=== PATIENT | male | born 1960 | race Caucasian/White ===

== ENCOUNTER 2020-07-25 07:43 | Outpatient (CLI) | payer BC, SELFPAY | END 2020-07-25 07:44 | disposition home or self-care (01) | LOC: ANHNEURO 07:55 | PROVIDERS: Visit Provider Psychiatry & Neurology Neurology | DX: R51.9 Headache, unspecified (principal) | CPT/HCPCS: 95816 ==

== ENCOUNTER 2020-07-25 08:11 | Outpatient (CLI) | payer BC, SELFPAY ==
--- NOTE | ~2020-07-25 | MR_ITS ---
EXAMINATION: MR brain/brain stem wo con EXAM DATE: 07/25/2020 08:41 INDICATION: Headache TECHNIQUE: Magnetic resonance imaging (MRI) of the brain/brain stem obtained without contrast. Judithitt al T1, axial diffusion, gradient echo (T2*), T1, T2, FLAIR sequences obtained. Comparison is made to prior examination from 03/07/2011. FINDINGS: There are no areas of restricted diffusion to suggest acute infarction. There is no acute hemorrhage seen on the T2*, a hemosiderin sensitive sequence. No intraparenchymal brain mass. The ve ntricles are normal in size. There are no extra-axial collections. Flow voids are seen in the cereb ral arteries on the T2-weighted sequences consistent with their expected patency. The orbits are unr emarkable. Soft tissue is unremarkable. Mild mucoperiosteal thickening. IMPRESSION: 1. Unremarkable brain MRI examination. Reviewed, dictated and finalized at location B. GER RESEARCH
--- NOTE | 2020-07-26 11:24 | WPDNEUROLOGY ---
Neurology EEG Report General Information Date of Study: 07/25/20 TEST EEG DIAGNOSIS headaches CONDITION OF RECORDING awake drowsy and sleep EEG NUMBER [id number] CLINICAL HISTORY patient reported he has had severe carbon monoxide poisoning about a month ago and is still having headaches, fatigue, his stuttering and feeling unbalanced. EEG DESCRIPTION basic resting occipital frequency consists of diffuse low-voltage 15 to 18 hertz per 2nd beta activity admixed with multiple muscle artifacts and movement artifacts. Bilateral symmetrical sleep activity seen during sleep but again admixed with multiple artifacts. Hyperventilation not done. Photic stimulation produced normal drive. Non paroxysmal. Nonfocal. Nonlateralizing. IMPRESSION No significant abnormalities noted though the EEG is compromised by muscle artifacts.
== END 2020-07-25 08:12 | disposition home or self-care (01) ==
LOC: ANHIMG 08:13
PROVIDERS: PCP Emergency Medicine; Visit Provider Psychiatry & Neurology Neurology
DX: R51.9 Headache, unspecified (principal)
CPT/HCPCS: 70551

== ENCOUNTER 2021-08-01 07:46 | Outpatient (RCR) | payer BC, SELFPAY ==
[2021-08-01] MEDS: diphenhydrAMINE HCl CAP 25 MG CAPSULE PO (12:18)
[2021-08-01] MEDS: FAMOTIDINE 20 MG TABLET PO (12:18)
[2021-08-01] MEDS: ACETAMINOPHEN 325 MG TABLET 650 MG PO (12:18)
[2021-08-01 12:24] VITALS: BP 99/69; PULSE 80; RESP 20; TEMP 36.2; O2SAT 100
[2021-08-01 13:54] VITALS: BP 103/69
== END 2021-08-01 17:00 ==
LOC: AMCINF 07:46
PROVIDERS: PCP Emergency Medicine; Visit Provider Internal Medicine Hematology & Oncology
DX: U07.1 COVID-19 (principal)
CPT/HCPCS: A9270; M0245; Q0245

== ENCOUNTER 2023-05-14 20:17 | Observation (INO) | payer BC, SELFPAY ==
[2023-05-14] VITALS (7 sets, daily range): BP systolic 121–146; BP diastolic 75–94; PULSE 66–74; RESP 11–20; TEMP 36.6; O2SAT 97–100
--- NOTE | ~2023-05-14 | MR_ITS ---
MRI of the brain Clinical History: Dizziness, left pronator drift Technique: Axial and sagittal T1-weighted images were acquired. These were followed by axial T2-weigh chris, diffusion weighted, gradient, and FLAIR images. Following intravenous administration of 20 cc Mu ltiHance gadolinium, T1-weighted fat-sat imaging was performed in the axial and coronal planes. Findings: There is no abnormal signal in the brain parenchyma. No acute infarct, intracranial hemorrh age, or mass lesion identified. Ventricles and subarachnoid spaces are unremarkable. Orbits are unremarkable. Paranasal sinuses and m astoid air cells are clear. Major intracranial flow voids are intact. Sagittal midline structures are intact. No abnormal postcontrast enhancement identified. Impression: Unremarkable exam. Reviewed, dictated and finalized at location M. Impression: Unremarkable exam.
--- NOTE | ~2023-05-14 | CT_ITS ---
EXAMINATION: CTA brain carotid DATE: 05/14/2023 22:01 INDICATION: Headache and left arm tingling TECHNIQUE: Computed tomographic angiography (CTA) of the head was performed without and with 100 mL O mnipaque-350 intravenous contrast. CTA of the neck was performed with intravenous contrast. The dose- length product was 1854.85 mGy-cm. Maximum intensity projection and volume rendered 3D-reconstruction s were created by the technologist on a separate workstation. Automated exposure control and iterativ e reconstruction technique were employed. COMPARISON: 01/04/2011 FINDINGS: HEAD CTA: There is no intracranial hemorrhage, acute infarction, or abnormal mass lesion. The ventric les are normal. There is no abnormal mass effect or midline shift. The pryor-white matter differentiat ion is normal. The basal cisterns are patent. The orbits are normal. There is mild mucosal thickening of the paranasal sinuses. There is no significant stenosis of the basilar artery or posterior cerebral arteries. There is no si gnificant stenosis of the intracranial internal carotid arteries or the anterior or middle cerebral a rteries. The anterior communicating artery and posterior communicating arteries are normal. There is no aneurysm. The distal left vertebral artery is diminutive. NECK CTA: The thyroid gland is unremarkable. The submandibular and parotid glands are symmetric. Ther e is no lymphadenopathy. There are no masses identified. The airway is unremarkable. Dependent atelec tasis is noted. The superior mediastinum is unremarkable. There is mild cervical spondylosis. There is 0% stenosis of the proximal right internal carotid artery relative to normal distal artery l umen diameter (NASCET criteria). There is 0% stenosis of the proximal left internal carotid artery re lative to normal distal artery lumen diameter. IMPRESSION: 1. No acute intracranial abnormality. Normal head CTA. 2. 0% stenosis of the proximal right internal carotid artery relative to normal distal artery lumen d iameter (NASCET criteria). 3. 0% stenosis of the proximal left internal carotid artery relative to normal distal artery lumen di ameter. Reviewed, dictated and finalized at location F. IMPRESSION: 1. No acute intracranial abnormality. Normal head CTA. 2. 0% stenosis of the proximal right internal carotid artery relative to normal distal artery lumen diameter (NASCET criteria). 3. 0% stenosis of the proximal left internal carotid artery relative to normal distal artery lumen diameter.
--- NOTE | ~2023-05-14 | XR_ITS ---
EXAMINATION: XR chest 2V DATE: 05/14/2023 20:42 INDICATION: Chest pain TECHNIQUE: AP and lateral views of the chest are obtained. COMPARISON: 01/04/2011 FINDINGS: The lung volumes are low. The lungs are free of acute opacities. No pleural effusion or pne umothorax. Changes of right shoulder arthroplasty are noted. The cardiomediastinal silhouette is norm al. There is mild thoracic spondylosis. IMPRESSION: 1. No acute cardiopulmonary abnormality. Reviewed, dictated and finalized at location F.
--- NOTE | 2023-05-14 20:19 | ECG_ITS ---
Measurements Intervals [place] Rate: 68 P: 49 [place]: 135 QRS: 54 QRSD: 94 T: 66 QT: 404 QTc: 430 Interpretive Statements SINUS RHYTHM MINIMAL VOLTAGE CRITERIA FOR LVH, CONSIDER NORMAL VARIANT [MEETS CRITERIA IN ONE OF: R(aVL), S(V1), R(V5), R(V5/V6)+S(V1)] ABNORMAL ECG NO PREVIOUS ECG AVAILABLE FOR COMPARISON Electronically Signed On 05-15-2023 8:59:59 CDT by Sergio Huddleston M.D.
[2023-05-14 20:39] LABS: Basophils Percent Auto 0.5 % (0.2-1.2); Eosinophils Percent Auto 0.5 % (0-4.4); Hematocrit 47.6 % (42.0-52.0); Hemoglobin 16.1 g/dL (14.0-18.0); Immature Granulocyte Absolute 0.02 K/mm3 (0.00-0.031); Immature Granulocyte Percent A 0.2 % (0-0.5); Lymphocytes Absolute Auto 2.44 K/mm3 (0.9-3.2); Lymphocytes Percent Auto 27.8 % (18.3-44.2); Mean Corpuscular HGB Conc 33.8 g/dl (32-36); Mean Corpuscular Hemoglobin 30.3 pg (26-34); Mean Corpuscular Volume 89.5 fl (80-100); Mean Platelet Volume 10.6 fl (7.4-10.4); Monocytes Absolute Auto 0.7 K/mm3 (0.1-0.6); Monocytes Percent Auto 7.7 % (2.6-8.5); Neutrophils Absolute Auto 5.6 K/mm3 (1.3-6.7); Neutrophils Percent Auto 63.3 % (45.5-73.1); Platelet Count Result 217 k/mm3 (150-375); Red Blood Count 5.32 M/mm3 (4.6-6.20); Red Cell Distribution Width 13.2 % (11.5-14.5); White Blood Count 8.8 K/mm3 (4.5-10.0)
[2023-05-14 20:48] LABS: Alanine Aminotransferase 27 U/L (6-50); Albumin Level 4.1 g/dL (3.5-5.1); Alkaline Phosphatase 45 U/L (38-126); Anion Gap 10 mmol/L (8-16); Aspartate Amino Transferase 29 U/L (17-59); Bilirubin,Total 0.6 mg/dL (0.2-1.3); Blood Urea Nitrogen 17 mg/dL (9-20); Calcium 8.9 mg/dL (8.4-10.2); Carbon Dioxide 20 mmol/L (22-30); Chloride 107 mmol/L (98-107); Estimated CRCL calculation 58 ml/min; Estimated Glomerular Filt Rate 56; Glucose 107 mg/dL (65-110); Lipase 75 U/L (23-300); Potassium 3.7 mmol/L (3.4-5.0); Sodium 137 mmol/L (137-145)
[2023-05-14 20:49] LABS: Prothrombin Time 13.1 Seconds (11.1-14.7)
[2023-05-14 20:50] LABS: Partial Thromboplastin Time 26.4 SECONDS (22.3-36.8)
[2023-05-14 21:00] LABS: Troponin I < 0.012 ng/mL (0.000-0.034)
[2023-05-14] MEDS: SODIUM CHLORIDE 0.9% IV 1,000 ML 999 ML IV CONT (21:46)
[2023-05-14] MEDS: MECLIZINE HCL 25 MG TABLET PO (21:48)
[2023-05-14] MEDS: ONDANSETRON INJ 4 MG/2 ML VIAL IV PUSH (21:48)
--- NOTE | 2023-05-14 22:30 | ED.CHESTPAIN ---
HPI - Chest Pain General Chief Complaint: Chest Pain Stated Complaint: CHEST PAIN Time Seen by Provider: 05/14/23 20:46 Source: patient Mode of arrival: EMS Limitations: no limitations History of Present Illness HPI narrative: Patient is a 62-year-old male who presents the ED via EMS with report of chest pain and dizziness. Patient reports he has been feeling intermittently dizzy, described as though the room is spinning, since Friday. He states anytime he would stand up and try to move he would become dizzy, diaphoretic, clammy, and developed a headache with nausea and vomiting. On Friday, he did have an episode of chest pain that was mild in his left lower anterior chest. He developed worsening dizziness while at work this evening around 6:30 PM. He developed chest pain again with this episode of dizziness, which she states became more severe around 7:15 PM. The pain began to radiate through to his back and he experienced shortness of breath and tingling in his left arm. EMS was then called. EMS gave the patient aspirin and nitroglycerin en route to the ED which he reports resolved his chest pain. He denies any chest pain by the time of my evaluation. He does still feel dizzy with movement. Denies any vision changes, focal weakness or numbness, confusion, slurred speech. Denies previous cardiac Hx. Denies HTN, HLD, DM, smoking. Related Data Home Medications Medication Instructions Recorded Confirmed desvenlafaxine succinate 100 mg 100 mg PO DAILY 08/01/21 08/01/21 tablet,extended release 24 hr (Pristiq) levothyroxine 137 mcg capsule 137 mcg PO DAILY 08/01/21 08/01/21 Allergies Allergy/AdvReac Type Severity Reaction Status Date / Time Penicillins Allergy Unknown Verified 08/01/21 12:26 Review of Systems Review of Systems: CONSTITUTIONAL: Denies fever, chills, or sweats. EYES: Denies visual changes. CARDIOVASCULAR: See HPI. RESPIRATORY: See HPI. GASTROINTESTINAL: See HPI. GENITOURINARY: Denies dysuria or hematuria. MUSCULOSKELETAL: Denies back pain, joint pain, or myalgia. NEUROLOGIC: See HPI. All systems reviewed & are unremarkable except as noted in HPI and below PMFSH Family History Family History Other Family history of mental disorder Hypertension Social History Social History Alcohol intake: current Exam Narrative: GENERAL: Mildly ill appearing, obese with BMI of 30.1, non-toxic, in no acute distress. HEAD: Normocephalic, atraumatic. EYES: PERRL. Difficult to follow EOM as this reproduces dizziness. No significant nystagmus seen. Conjunctiva clear. EARS: TMS clear, with good light reflex. No erythema or bulging. No cerumen impaction. NECK: Supple. No adenopathy, no masses. No meningeal signs. RESPIRATORY: Airway patent, respirations nonlabored. Clear to auscultation bilaterally, no rales, rhonchi, wheezing. CARDIOVASCULAR: Regular rate and rhythm without murmurs, rubs, or gallops. Radial pulses 2+ and equal bilaterally. ABDOMINAL: Soft, nontender, nondistended, no hepatosplenomegaly. Normoactive BS. MUSCULOSKELETAL: Moves all extremities. Strength/ROM intact without gross deformities or TTP. No edema. No calf tenderness. SKIN: Warm, dry, normal color. No rashes. NEURO: A&O X3. Speech clear. Follows commands. CN II-XII intact. Sensation grossly intact. No ataxic movements. Strength 5/5 in upper and lower extremities bilaterally. Equal weapons officer naval activity strength bilaterally. Uybu-mj-vrrs and pblyzb-sc-qxur testing intact bilaterally though FTN testing difficult for patient to perform as touching his finger to his nose reproduces dizziness. No gross pronator drift, however some instability of LUE noted. PSYCHIATRIC: Appropriate mood and affect. Normal interaction. Course Vital Signs Vital signs: Vital Signs Temperature 97.9 F 05/14/23 20:13 Pulse Rate 72 05/14/23 20:13
[2023-05-14 23:19] LABS: D Dimer < 0.27 ug/mL (<0.48)
[2023-05-14 23:55] LABS: Troponin I < 0.012 ng/mL (0.000-0.034)
[2023-05-15] VITALS (13 sets, daily range): BP systolic 122–141; BP diastolic 73–98; PULSE 59–82; RESP 16–18; TEMP 36.4–36.8; O2SAT 96–100; BMI 28.5
--- NOTE | 2023-05-15 | ECHO_ITS ---
Patient Info Name: Rj Gibbs Age: 62 years : 1960 Gender: Male Ht: 72 in Wt: 210 lbs BSA: 2.22 m2 HR: 82 bpm BP: 134 / 91 mmHg Heart Rhythm: Sinus Rhythm Technical Quality: Good Exam Date: 05/15/2023 10:03 AM Exam Location: [facility] Card Pulmonary Patient Status: Outpatient Admit Date: 05/15/2023 Staff Ordering Physician: Alvino Real MD Financial Administrator: Marcela Poole RDCS Attending Provider: Alvino Real MD Referring Physician: Addie TAPIA; Exam Type: CA echo doppler color flow Study Info Indications - DIZZNESS Complete two-dimensional, color flow and Doppler transthoracic echocardiogram is performed. Summary 1. Complete two-dimensional, color flow and Doppler transthoracic echocardiogram is performed. 2. Left ventricular chamber dimension is normal. 3. Left ventricular systolic function is normal, estimated at >70%. 4. There is mildly increased left ventricular wall thickness. 5. Right ventricular systolic function is normal. 6. Left atrial chamber dimension is mildly enlarged. 7. No significant valvular disease. Left Ventricle Left ventricular chamber dimension is normal. Left ventricular systolic function is normal, estimated at >70%. There is mildly increased left ventricular wall thickness. Right Ventricle Right ventricular chamber dimension is normal. Right ventricular systolic function is normal. Left Atria Left atrial chamber dimension is mildly enlarged. Right Atria Right atrial chamber dimension is normal. Atrial Septum Intact interatrial septum visualized by color flow imaging. Aortic Valve The aortic valve is probable trileaflet. There is mild aortic valve sclerosis. There is no aortic valve stenosis. There is no aortic valve regurgitation. Pulmonic Valve The pulmonic valve is not well visualized. Mitral Valve There is trace mitral valve regurgitation. Tricuspid Valve There is trace tricuspid valve regurgitation. Pericardium/Pleural There is no pericardial effusion. Inferior Vena Cava Normal inferior vena cava with >50% collapse upon inspiration consistent with normal right atrial pressure, 3 mmHg. Aorta The aortic root size at the sinus of Valsalva is normal. Left Ventricular Outflow Tract Name Value Normal LVOT Doppler LVOT Peak Gradient 7 mmHg LVOT Mean Gradient 4 mmHg LVOT VTI 34 cm LVOT VTI/AV VTI Ratio 0.9 Pulmonic Valve Name Value Normal RVOT Doppler RVOT Peak Gradient 4 mmHg PV Doppler PV Peak Gradient 4 mmHg Mitral Valve Name Value Normal MV Doppler MV Decel Riley 402 cm/s2
--- NOTE | 2023-05-15 00:44 | PM.IMHP ---
H&P: HPI History of Present Illness Date/Time: 05/15/23 00:44 Chief Complaint: DIZZINESS Narrative: THIS IS A 62-YEAR-OLD MALE WITH PAST MEDICAL HISTORY SIGNIFICANT FOR COPD/ASTHMA, HYPOTHYROIDISM, BACK PAIN. PATIENT COMES TO THE EMERGENCY ROOM DUE TO DIZZINESS VERTIGO CHEST PAIN NO SHORTNESS OF BREATH NO COUGH NO SPUTUM PRODUCTION NO VISION CHANGES ALSO HAD AN OCCIPITAL HEADACHE WITH RADIATION TO THE FRONTAL AREA, DENIES ANY FEVERS, RIGORS, CHILLS, NAUSEA, VOMITING, DIARRHEA, ABDOMINAL PAIN PATIENT HAS BEEN MAINLY STAYING IN BED DUE TO SIGNIFICANT DIZZINESS AND VERTIGO WHEN STANDING DENIES ANY LOSS OF CONSCIOUSNESS SYNCOPE OR NEAR-SYNCOPE DENIES ANY FOCAL MOTOR DEFICIT, DENIES ANY SPEECH DISTURBANCE,. THIS STARTED 3 DAYS AGO UPON PRESENTATION TO THE EMERGENCY ROOM AND AFTER VARIOUS TREATMENTS IN THE EMERGENCY ROOM PATIENT IMPROVED IT BEING ADMITTED FOR FURTHER EVALUATION MANAGEMENT AND TREATMENT. EXAMINATION: CTA brain carotid DATE: 05/14/2023 22:01 INDICATION: Headache and left arm tingling TECHNIQUE: Computed tomographic angiography (CTA) of the head was performed without and with 100 mL Omnipaque-350 intravenous contrast. CTA of the neck was performed with intravenous contrast. The dose-length product was 1854.85 mGy-cm. Maximum intensity projection and volume rendered 3D-reconstructions were created by the technologist on a separate workstation. Automated exposure control and iterative reconstruction technique were employed. COMPARISON: 01/04/2011 FINDINGS: HEAD CTA: There is no intracranial hemorrhage, acute infarction, or abnormal mass lesion. The ventricles are normal. There is no abnormal mass effect or midline shift. The pryor-white matter differentiation is normal. The basal cisterns are patent. The orbits are normal. There is mild mucosal thickening of the paranasal sinuses. There is no significant stenosis of the basilar artery or posterior cerebral arteries. There is no significant stenosis of the intracranial internal carotid arteries or the anterior or middle cerebral arteries. The anterior communicating artery and posterior communicating arteries are normal. There is no aneurysm. The distal left vertebral artery is diminutive. NECK CTA: The thyroid gland is unremarkable. The submandibular and parotid glands are symmetric. There is no lymphadenopathy. There are no masses identified. The airway is unremarkable. Dependent atelectasis is noted. The superior mediastinum is unremarkable. There is mild cervical spondylosis. There is 0% stenosis of the proximal right internal carotid artery relative to normal distal artery lumen diameter (NASCET criteria). There is 0% stenosis of the proximal left internal carotid artery relative to normal distal artery lumen diameter. IMPRESSION: 1. No acute intracranial abnormality. Normal head CTA. 2. 0% stenosis of the proximal right internal carotid artery relative to normal distal artery lumen diameter (NASCET criteria). 3. 0% stenosis of the proximal left internal carotid artery relative to normal distal artery lumen diameter. Reviewed, dictated and finalized at location F. EXAMINATION: XR chest 2V DATE: 05/14/2023 20:42 INDICATION: Chest pain TECHNIQUE: AP and lateral views of the chest are obtained. COMPARISON: 01/04/2011 FINDINGS: The lung volumes are low. The lungs are free of acute opacities. No pleural effusion or pneumothorax. Changes of right shoulder arthroplasty are noted. The cardiomediastinal silhouette is normal. There is mild thoracic spondylosis. IMPRESSION: 1. No acute cardiopulmonary abnormality. Review of Systems Review of Systems: DIZZINESS, VERTIGO Constitutional: Constitutional: Denies chills, Denies fatigue, Denies fever(s), Reports headache(s), Denies malaise, Denies night sweats and Denies weakness Eyes: Eyes: Denies change in vision, Denies floaters, Denies loss of peripheral vision, Denies loss
--- NOTE | 2023-05-15 01:42 | ADMGEN ---
This patient, Rj Gibbs, was admitted to 2 Medical Room 260-01. Patient/family oriented to hospital policies and general routines including ID bracelet, bed and alarms, visiting hours, pain management, procedures, bathroom and other care routines, personal items, smoking policy, room service/diet, and visiting hours. Information on how to activate the Rapid Response Team has been discussed. Patient/Family are encouraged to report perceived risks to care and to ask questions if they do not understand what they are told or what they should do.
[2023-05-15 03:33] LABS: Troponin I < 0.012 ng/mL (0.000-0.034)
[2023-05-15] MEDS: LEVOTHYROXINE SODIUM 25 MCG TABLET PO (05:48)
[2023-05-15] MEDS: LEVOTHYROXINE SODIUM 112 MCG TABLET PO (05:48)
[2023-05-15] MEDS: FLUTICASONE/SALMETEROL 115-21 MCG INHALER 1 PUFF 2 PUFF INHALATION ×2 (08:04→21:06)
[2023-05-15] MEDS: DESVENLAFAXINE SUCCINATE 50 MG TAB.ER.24H 100 MG PO (08:32)
[2023-05-15 09:23] LABS: Appearance Urine Clear (Clear); Bacteria Urine 1+ /hpf; Bilirubin Urine Negative (Negative); Blood Urine Negative (Negative); Color Urine Yellow (Yellow); Glucose Urine UA Negative (Negative); Ketones Urine Negative (Negative); Leukocyte Esterase Ur 1+ LEU/UL (Negative); Nitrate Urine Negative (Negative); Non Pathogenic Casts 0-2; Protein Urine Negative (Negative); RBC Urine 0-2 /hpf (0-2); Specific Grav Ur 1.017 (1.001-1.035); Squamous Epithelial Cell Urine None seen /hpf (Few); Urobilinogen Urine 0.2 mg/dL (<2.0); WBC Urine 21-50 /hpf; pH Urine 6.5 (5.0-9.0)
[2023-05-15 09:35] LABS: Add Urine Microscopic? YES
--- NOTE | 2023-05-15 11:54 | WPDNEURCNPN ---
Assessment and Plan Assessment and plan (1) Dizziness: Code(s): R42 - Dizziness and giddiness Status: Acute (2) Chest pain: Qualifiers: Chest pain type: unspecified Qualified Code(s): R07.9 - Chest pain, unspecified Code(s): R07.9 - Chest pain, unspecified Status: Acute Plan Mr. Gibbs is a 62 year old male presenting for evaluation of worsening dizziness, described as lightheadedness with positional change, in the setting of chest pain. CTA brain/carotid was negative for stenosis. MRI brain is negative for central cause. Sounds like orthostatic intolerance based on his description. Also considering cardiac etiology. - Agree with further cardiac testing - Check orthostatics - No further neuro work-up needed during admission Consult date: 05/15/23 Reason for consult: Dizziness HPI: Rj Gibbs is a 62 year old male presenting due to chest pain and dizziness. Patient felt dizzy for the past several days intermittently. He describes the dizziness as mostly lightheadedness rather than room spinning. Every time he would stand up, he would become diaphoretic, clammy, with a headache. He also started to develop chest pain, which became severe to the point that he called EMS. EMS gave patient aspirin and nitroglycerin en route to the ED which resolved his chest pain. In the ED he had a CT head which did not show any acute changes. CTA brain/carotid was negative for any stenosis or occlusion. MRI brain has been done this morning which was normal as well. EKG showed normal sinus rhythm. Echo has been ordered to work-up the chest pain. Patient reports that his chest pain has resolved, and dizziness has significantly improved since admission as well. He does have a history of vestibular neuritis in which he felt true vertigo but the dizziness he is describing currently is more of a lightheadedness. Review of Systems Constitutional: Constitutional: Denies chills, Denies fever(s) and Denies weight loss Eyes: Eyes: Reports blurry vision, Denies diplopia and Denies loss of vision ENT: Reports dizziness, Denies hearing loss and Denies tinnitus Cardiovascular: Cardiovascular: Reports chest pain, Denies syncope and Denies dyspnea Respiratory: Respiratory: Denies cough, Denies dyspnea and Denies wheezing Gastrointestinal: Gastrointestinal: Denies abdominal pain, Denies change in bowel habits and Denies vomiting Genitourinary: Genitourinary: Denies urinary incontinence Musculoskeletal: Musculoskeletal: Denies arthralgias and Denies joint swelling Integumentary/Breasts: Skin/Breast: Denies new lesions and Denies rash Neurologic: Reports as per HPI, Denies dizziness, Denies syncope and Denies loss of vision Psychiatric: Psychiatric: Denies anxiety and Denies depression Endocrine: Endocrine: Denies cold intolerance and Denies heat intolerance Hematologic/Lymphatic: Hematologic/Lymphatic: Denies easy bleeding and Denies easy bruising Allergic/Immunologic: Allergic/Immunologic: Denies no additional allergic/immunologic complaints and Denies wheezing PMFSH Family History Family History Other Family history of mental disorder Hypertension Social History Social History Smoking status: Never smoker Smokeless tobacco user: chewing tobacco Alcohol intake: current Drinks per week: 3 Substance use: never Lack of Transportation: No Lack of Food: Never True Current Housing: I Have Housing Concerned About Future Housing: No Difficulty Paying Gas/Electric Bills: No Difficulty Paying for Meds: No Currently Unemployed: No Education: High School Diploma/GED Difficulty w/ Childcare or Family Care: No Spiritual care concerns: No Meds Home Medications and Allergies Home Medications Medication Instructions Recorded Confirmed Type tramadol 50 mg tablet 50 m
--- NOTE | 2023-05-15 13:07 | PM.IMPN ---
Progress Note: A&P Assessment and Plan (1) Vertigo: Code(s): R42 - Dizziness and giddiness Status: Acute Assessment and Plan: Patient presented to the ED due to persistent dizziness/ lightheadedness for 4 days. History of vestibular neuritis but other than that incident several years ago he does not have chronic vertigo. Head and neck CTA was 0% stenosis bilateral internal carotids and no acute intracranial abnormality. Brain MRI without acute intracranial abnormality Echocardiogram pending. Orthostatics ordered Neurology consulted appreciate recommendations. Meclizine for dizziness (2) Chest pain: Qualifiers: Chest pain type: unspecified Qualified Code(s): R07.9 - Chest pain, unspecified Code(s): R07.9 - Chest pain, unspecified Status: Acute Assessment and Plan: Chest pain seems pleuritic in nature. It is since resolved. Cardiac markers undetectable. No new EKG changes. Continue to monitor. (3) Hypertension: Code(s): I10 - Essential (primary) hypertension Status: Acute Assessment and Plan: Patient found to have elevated systolic pressure in the 160s in the ED. Patient not currently on antihypertensives. Renal ultrasound. Consider starting antihypertensive. (4) Chronic back pain: Code(s): M54.9 - Dorsalgia, unspecified; G89.29 - Other chronic pain Status: Acute Assessment and Plan: Chronic, continue to monitor. Subjective Date/time seen: 05/15/23 13:07 Interval history: Patient doing well today. Patient states that dizziness has much improved although not completely better. patient describes feeling mostly off balance rather than the room is spinning although she has experienced this before. He denies any current nausea vomiting although prior to ED arrival he did have several episodes of nausea vomiting associated with dizziness. Exam Narrative: GENERAL: Comfortable, no acute distress HENMT: moist mucous membranes EYES: EOM intact b/l NECK: no lymphadenopathy RESPIRATORY: clear to auscultation CARDIO: RRR GI: soft, nontender, bowel sounds present SKIN: no rashes EXTREMITIES: no edema, redness or tenderness Objective Data Vital Signs Vital Signs: Vital Signs - 24 hr 05/14/23 20:13 05/14/23 20:20 05/14/23 20:21 Temperature 97.9 F Pulse Rate 72 68 Respiratory Rate 20 Blood Pressure 146/94 H Pulse Oximetry 99 100 Oxygen Delivery Room Air Room Air 05/14/23 20:24 05/14/23 21:26 05/14/23 22:09 Temperature Pulse Rate 74 69 Respiratory Rate 11 L 14 Blood Pressure 133/86 124/75 Pulse Oximetry 100 97 97 Oxygen Delivery Room Air 05/14/23 23:03 05/15/23 01:29 05/15/23 01:59 Temperature 98 F Pulse Rate 66 75 64 Respiratory Rate 12 16 Blood Pressure 121/86 141/98 H Pulse Oximetry 98 100 Oxygen Delivery 05/15/23 01:57 05/15/23 04:00 05/15/23 03:00 Temperature 97.6 F Pulse Rate 63 82 Respiratory Rate 18 Blood Pressure 134/91 H Pulse Oximetry 97 Oxygen Delivery Room Air 05/15/23 08:32 05/15/23 08:00 05/15/23 12:01 Temperature Pulse Rate 59 L 71 Respiratory Rate 18 Blood Pressure Pulse Oximetry 97 Oxygen Delivery Room Air Intake/Output Intake/Output: Intake & Output 05/12/23 05/13/23 05/14/23 05/15/23 23:59 23:59 23:59 23:59 Intake Total 1000 540 Balance 1000 540 Meds/Results Medications: Active Medications Generic Name Dose Route Start Last Admin Trade Name Freq PRN Reason Stop Dose Admin Albuterol 2 puff 05/15/23 04:57 Albuterol Sulfate (*Sp) Aerosol 1 Puff INHALATION Q6HRT PRN Shortness Of Breath Or Wheezing Desvenlafaxine Succinate 100 mg 05/15/23 09:00 05/15/23 08:32 Desvenlafaxine Succinate 50 Mg Tab.Er.24h PO 100 mg QAM ESTRELLITA Administration Levothyroxine Sodium 25 mcg 05/15/23 06:30 05/15/23 05:48 Levothyroxine
[2023-05-15] MEDS: MECLIZINE HCL 12.5 MG TABLET PO ×2 (16:42→21:37)
[2023-05-16] VITALS (10 sets, daily range): BP systolic 120–152; BP diastolic 74–110; PULSE 55–79; RESP 16–18; TEMP 36.6–37.3; O2SAT 95–97
[2023-05-16 05:15] LABS: Basophils Absolute Auto 0.1 K/mm3 (0.0-0.1); Basophils Percent Auto 0.7 % (0.2-1.2); Eosinophils Absolute Auto 0.1 K/mm3 (0-0.3); Eosinophils Percent Auto 0.9 % (0-4.4); Hematocrit 48.2 % (42.0-52.0); Hemoglobin 15.9 g/dL (14.0-18.0); Immature Granulocyte Absolute 0.03 K/mm3 (0.00-0.031); Immature Granulocyte Percent A 0.3 % (0-0.5); Lymphocytes Absolute Auto 2.24 K/mm3 (0.9-3.2); Lymphocytes Percent Auto 25.4 % (18.3-44.2); Mean Corpuscular Hemoglobin 30.5 pg (26-34); Mean Corpuscular Volume 92.3 fl (80-100); Mean Platelet Volume 10.7 fl (7.4-10.4); Monocytes Absolute Auto 0.7 K/mm3 (0.1-0.6); Monocytes Percent Auto 8.2 % (2.6-8.5); Neutrophils Absolute Auto 5.7 K/mm3 (1.3-6.7); Neutrophils Percent Auto 64.5 % (45.5-73.1); Platelet Count Result 204 k/mm3 (150-375); Red Blood Count 5.22 M/mm3 (4.6-6.20); Red Cell Distribution Width 13.2 % (11.5-14.5); White Blood Count 8.8 K/mm3 (4.5-10.0)
[2023-05-16 05:32] LABS: Alanine Aminotransferase 24 U/L (6-50); Albumin Level 3.9 g/dL (3.5-5.1); Alkaline Phosphatase 36 U/L (38-126); Anion Gap 5 mmol/L (8-16); Aspartate Amino Transferase 26 U/L (17-59); Bilirubin,Total 0.7 mg/dL (0.2-1.3); Blood Urea Nitrogen 16 mg/dL (9-20); Calcium 8.6 mg/dL (8.4-10.2); Carbon Dioxide 27 mmol/L (22-30); Chloride 106 mmol/L (98-107); Estimated CRCL calculation 74 ml/min; Estimated Glomerular Filt Rate > 60; Glucose 96 mg/dL (65-110); Sodium 138 mmol/L (137-145)
[2023-05-16] MEDS: LEVOTHYROXINE SODIUM 25 MCG TABLET PO (06:02)
[2023-05-16] MEDS: LEVOTHYROXINE SODIUM 112 MCG TABLET PO (06:02)
[2023-05-16] MEDS: DESVENLAFAXINE SUCCINATE 50 MG TAB.ER.24H 100 MG PO (08:13)
[2023-05-16] MEDS: MECLIZINE HCL 12.5 MG TABLET PO ×2 (08:13→12:34)
[2023-05-16] MEDS: FLUTICASONE/SALMETEROL 115-21 MCG INHALER 1 PUFF 2 PUFF INHALATION (08:25)
--- NOTE | 2023-05-16 11:59 | PM.DS ---
DS: Admitting Diagnosis Discharge Date 05/16/23 Admitting Diagnosis Dizziness DS: Discharge Diagnosis Discharge Diagnosis (1) Vertigo: Code(s): R42 - Dizziness and giddiness Status: Acute (2) Chest pain: Qualifiers: Chest pain type: unspecified Qualified Code(s): R07.9 - Chest pain, unspecified Code(s): R07.9 - Chest pain, unspecified Status: Acute (3) Hypertension: Code(s): I10 - Essential (primary) hypertension Status: Acute (4) Chronic back pain: Code(s): M54.9 - Dorsalgia, unspecified; G89.29 - Other chronic pain Status: Acute DS: Summary Hospital Course Hospital Course: This is a 62-year-old male with past medical history of COPD, hypothyroidism and chronic back pain to present to the ED on 05/15/2023 due to chest pain and dizziness. Patient did not have any visual changes, nausea, vomiting, fever or shortness of breath. Patient did have some balance issues and stated that he felt like his equilibrium was off rather than the room was spinning. His symptoms started approximately 3 days prior to ED presentation. Patient's orthostatics were negative. Cardiac enzymes were within normal limits. CTA brain and carotid negative for stenosis. MRI of the brain was negative. Echocardiogram performed which revealed an EF of greater than 70% and normal diastolic function. Patient was started on meclizine and given stated her exercises to help with benign positional vertigo. Patient's dizziness was worsened with changes of position. Will discharge patient home on meclizine. His UA was suspicious for possible infection although his urine culture has not shown anything yet. Will send in antibiotic if urine culture comes back positive. Labs and vital signs are stable he is medically clear for discharge at this time. Time Spent with Patient Time attestation: Total time spent providing and/or coordinating discharge services: Exam Narrative: GENERAL: Comfortable, no acute distress HENMT: moist mucous membranes EYES: EOM intact b/l NECK: no lymphadenopathy RESPIRATORY: clear to auscultation CARDIO: RRR GI: soft, nontender, bowel sounds present SKIN: no rashes EXTREMITIES: no edema, redness or tenderness DS: Data Data Completed and Pending Labs on day of discharge: Labs from last 24 hours 05/16/23 04:46 WBC 8.8 RBC 5.22 Hgb 15.9 Hct 48.2 MCV 92.3 MCH 30.5 MCHC 33.0 RDW 13.2 Plt Count 204 MPV 10.7 H Immature Gran % (Auto) 0.3 Neut % (Auto) 64.5 Lymph % (Auto) 25.4 Park % (Auto) 8.2 Eos % (Auto) 0.9 Baso % (Auto) 0.7 Lymph # (Auto) 2.24 Park # (Auto) 0.7 H Eos # (Auto) 0.1 Baso # (Auto) 0.1 Abs Immat Gran (auto) 0.03 Absolute Neuts (auto) 5.7 Absolute Nucleated RBC 0.0 Nucleated RBC % 0.0 Sodium 138 Potassium 4.0 Chloride 106 Carbon Dioxide 27 Anion Gap 5 L BUN 16 Creatinine 1.00 Estim Creat Clear Calc 74 Estimated GFR > 60 Glucose 96 Calcium 8.6 Total Bilirubin 0.7 AST 26 ALT 24 Alkaline Phosphatase 36 L Total Protein 7.0 Albumin 3.9 Discharge Plan Discharge Attending physician on discharge: Colleen Valles Consulting providers: Marc Poe; Alejandra Yousif Discharging Clinician: Joyce Valente Patient Disposition: Home, Self-Care Activity: as tolerated Diet: regular Discharge Instructions: Meclizine every 6 hours as needed for dizziness. Levaquin daily for 5 days for bladder infection. When to seek care: You sudden chest pain You have trouble breathing or shortness of breath He has vision changes or sweating Given nausea while your leg or sitting If you will flush in your heart is fluttering You faint Prevention: Stand up slowly Sit on side of the bed or couch for a few minutes before you stand up Take slow deep breaths when you feel lightheaded Discharge disposition: Take medications as prescribed Monitor blood pressures Hank
== END 2023-05-16 17:25 | disposition home or self-care (01) ==
LOC: ANHED 05-15 00:19 → ANH2MED 05-15 01:38
PROVIDERS: Emergency Medicine; Internal Medicine Critical Care Medicine; Admitting Provider Internal Medicine; Emergency Provider Physician Assistant; Visit Provider Hospitalist
DX: R42 Dizziness and giddiness (principal); R07.9 Chest pain, unspecified; N39.0 Urinary tract infection, site not specified; B95.1 Streptococcus, group B, as the cause of diseases classified elsewhere; R94.31 Abnormal electrocardiogram [ECG] [EKG]; I35.8 Other nonrheumatic aortic valve disorders; R11.2 Nausea with vomiting, unspecified; R20.2 Paresthesia of skin; R51.9 Headache, unspecified; R06.02 Shortness of breath; F10.90 Alcohol use, unspecified, uncomplicated
CPT/HCPCS: 36415; 70496; 70498; 70553; 71046; 80053; 81001; 83690; 84484; 85025; 85380; 85610; 85730; 87077; 87086; 87088; 93005; 93306; 94640; 96361; 96374; 99285; A9270; A9577; G0378; J2405; J7030; Q9967